=== PATIENT | female | born 1965 | race Caucasian/White ===

== ENCOUNTER 2017-07-09 22:30 | Emergency (ER) | END 2017-07-10 02:26 | disposition home or self-care (01) ==

== ENCOUNTER 2018-12-28 22:29 | Emergency (ER) | payer OTHER ==
[~2018-12-28] VITALS: Ht 160 cm; Wt 95.0 kg
[~2018-12-28 22:29] MED LIST: CHOL100062 PO; CYCL10TA7 PO; LEVO75TA5 PO; MULT-853 PO; TRAM50TA PO
[2018-12-28 22:41] VITALS: Ht 160 cm; Wt 95.0 kg
[2018-12-29] MEDS ORDERED: ACETAMINOPHEN 325 MG TAB PO ONE (02:00)
--- NOTE | 2018-12-29 03:10 | ERD ---
ER Documentation Chief Complaint Chief Complaint RIGHT FOOT 5TH DIGIT INJURY, BENT IT BACKWARDS, + PAIN X 1 DAY HPI This is a 53-year-old female presents to the ED complaining of right fifth toe pain since yesterday. 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 She did not fall or hit her head. She reports bruising along the dorsal aspect of her toe. She has pain with ambulation. She had took ibuprofen with mild relief. She is requesting an x- ray to rule out fracture. No other injuries reported. ROS All systems reviewed and are negative except as per history of present illness. Medications Home Meds Active Scripts Cyclobenzaprine Hcl* (Cyclobenzaprine Hcl*) 10 Mg Tablet, 5 MG PO TID, #15 TAB Prov:ANISHA GUILLERMO MD 07/10/17 Reported Medications Multivits-Min/Iron/FA/Lutein (Centrum Silver Women Tablet) 1 Each Tablet, 1 EACH PO, TAB 07/10/17 Cholecalciferol* (Vitamin D3*) 1,000 Unit Tablet, 1000 UNIT PO DAILY, TAB 07/10/17 Levothyroxine Sodium* (Levothyroxine Sodium*) 75 Mcg Tablet, 75 MCG PO BEFORE BREAKFAST, #30 TAB 07/10/17 Tramadol Hcl* (Ultram*) 50 Mg Tablet, 50 MG PO Q8, TAB 07/10/17 Allergies Allergies: Coded Allergies: montelukast (Unverified Allergy, Severe, ITCHINESS WITH PATCHY REDNESS SKIN, 07/10/17) PMhx/Soc History of Surgery: Yes (hysterectomy, c-spine surgery) Anesthesia Reaction: No Hx Neurological Disorder: Yes (cervical stenosis with radiculopathy) Hx Respiratory Disorders: No Hx Cardiac Disorders: Yes (previous HLD no longer treated) Hx Psychiatric Problems: No Hx Miscellaneous Medical Probl: Yes (Hypothyroidism) Hx Alcohol Use: No Hx Substance Use: No Hx Tobacco Use: No Smoking Status: Never smoker FmHx Family History: No diabetes Physical Exam Vitals Vital Signs Date Temp Pulse Resp B/P (MAP) Pulse Ox O2 O2 Flow FiO2 Time Delivery Rate 12/28/18 97.8 79 18 132/61 98 22:41 (84) Physical Exam Const: No acute distress Head: Atraumatic Eyes: Normal Conjunctiva Lower Extremity -right Skin: + Ecchymosis over the dorsal aspect of the fifth toe. Compartments: Soft Motor: + Pain with flexion extension of the fifth toe. Full range of motion of the ankle and foot. Sensation: Intact to light touch FDWS/MF/LF/P surfaces. Bones: + Moderate tenderness palpation along the fifth toe with soft tissue swelling. Nontender ankle and foot. Pulses/Perfusion: 2+ DP, Capillary refill < 2 seconds Neur: Awake and alert Psych: Normal Mood and Affect Results 24 hrs Current Medications Medications Dose Sig/Inga Start Time Status Last (Trade) Ordered Route PRN Stop Time Admin Dose Reason Admin 650 mg ONCE ONCE 12/29/18 DC 12/29/18 Acetaminophen PO 02:00 01:47 (Tylenol 12/29/18 02:01 Tab) Procedures/MDM LABS & DIAGNOSTIC IMAGING: PROCEDURE: XR Foot. CLINICAL INDICATION: Trauma. Pain. TECHNIQUE: AP, lateral and oblique views of the right foot was obtained. The images were reviewed on a PACS workstation. COMPARISON: None. FINDINGS: There is no acute fracture or dislocation. The joint spaces are preserved. Mild plantar calcaneal enthesopathy changes. There is soft tissue swelling of the fifth digit. IMPRESSION: 1. No acute fracture. 2. Fifth digit soft tissue swelling. 3. Mild plantar calcaneal enthesopathy changes. RPTAT: HRSR ED COURSE: The patient was given Tylenol The medication was well tolerated and the patient had market improvement in symptoms. The patient remained stable throughout ED course. MEDICAL DECISION MAKING: This is a 53-year-old female presents with right fifth toe pain status post hitting it against the wall yesterday. X-ray is negative for any acute fracture dislocation. Patient likely has a contusion. No evidence of compartment syndrome, neurologic injury, vascular injury, open joint, open fracture, tendon laceration, or foreign body. I recommended ibuprofen or Tylenol for pain relief at home. She can follow-up with your regular care doctor sometime this week. Strict return precautions were discussed. PRESCRIPTIONS: None SPECIALIST FOLLOW UP RECOMMENDED: None Patient has been advised to follow up with primary care in 1-2 days. Departure Diagnosis: Primary Impression: Toe contusion Encounter type: initial encounter Toe: lesser toe Damage to nail status: without damage Laterality: right Qualified Codes: S90.121A - Contusion of right lesser toe(s) without damage to nail, initial encounter Condition: Stable Patient Instructions: Contusion, Foot Referrals: [facility] YOU HAVE RECEIVED A MEDICAL SCREENING EXAM AND THE RESULTS INDICATE THAT YOU DO NOT HAVE A CONDITION THAT REQUIRES URGENT TREATMENT IN THE EMERGENCY DEPARTMENT. FURTHER EVALUATION AND TREATMENT OF YOUR CONDITION CAN WAIT UNTIL YOU ARE SEEN IN YOUR DOCTORS OFFICE WITHIN THE NEXT 1-2 DAYS. IT IS YOUR RESPONSIBILITY TO MAKE AN APPOINTMENT FOR FOLOW-UP CARE. IF YOU HAVE A PRIMARY DOCTOR --you should call your primary doctor and schedule an appointment IF YOU DO NOT HAVE A PRIMARY DOCTOR YOU CAN CALL OUR PHYSICIAN REFERRAL HOTLINE AT IF YOU CAN NOT AFFORD TO SEE A PHYSICIAN YOU CAN CHOSE FROM THE FOLLOWING [facility] [address] [facility]. [facility] [address] [facility] [address] [facility] [facility] [address] [facility] [facility] [address] [facility]. [facility] [address] [facility]. [facility] YOU HAVE RECEIVED A MEDICAL SCREENING EXAM AND THE RESULTS INDICATE THAT YOU DO NOT HAVE A CONDITION THAT REQUIRES URGENT TREATMENT IN THE EMERGENCY DEPARTMENT. FURTHER EVALUATION AND TREATMENT OF YOUR CONDITION CAN WAIT UNTIL YOU ARE SEEN IN YOUR DOCTORS OFFICE WITHIN THE NEXT 1-2 DAYS. IT IS YOUR RESPONSIBILITY TO MAKE AN APPOINTMENT FOR FOLOW-UP CARE. IF YOU HAVE A PRIMARY DOCTOR --you should call your primary doctor and schedule and appointment IF YOU DO NOT HAVE A PRIMARY DOCTOR YOU CAN CALL OUR PHYSICIAN REFERRAL HOTLINE AT . IF YOU CAN NOT AFFORD TO SEE A PHYSICIAN YOU CAN CHOSE FROM THE FOLLOWING [facility] INSTITUTIONS: [facility] [address] [place] [address] [facility] [address] [place] [address] [facility] + [facility] [address] [place] [address] Additional Instructions: Call your primary care doctor TOMORROW for an appointment during the next 2-4 days and bring all the information and medications prescribed. If the symptoms get worse and your provider is unavailable, return to the Emergency Department immediately. JOSEF JAY PA-C Dec 29, 2018 03:10
[2018-12-29 03:16] VITALS: BP 119/72; PULSE 67; RESP 18
== END 2018-12-29 03:16 | disposition home or self-care (01) ==
LOC: FTE 22:29
DX: S90.121A Contusion of right lesser toe(s) without damage to nail, initial encounter (principal); E03.9 Hypothyroidism, unspecified; W22.01XA Walked into wall, initial encounter; Y92.9 Unspecified place or not applicable
CPT/HCPCS: 73630; Z7610